=== PATIENT | male | born 1990 | race American Indian/Alaskan Native ===

== ENCOUNTER 2017-12-23 11:49 | Emergency (ER) | payer SELFPAY ==
[2017-12-23] MEDS ORDERED: ZOFRAN ODT ONE (11:59)
[2017-12-23] MEDS ORDERED: ZOFRAN ODT PO ONE (12:01)
[2017-12-23 12:16] LABS: Basophils % (Auto) 0.3 % (0.0-1.8); Eosinophils % (Auto) 0.2 % (0.0-4.3); Hematocrit 47.2 % (35.5-45.6); Hemoglobin 15.8 gm/dl (11.8-15.2); Lymphocytes # (Auto) 1.4 K/mm3 (1.2-5.4); Lymphocytes % (Auto) 9.4 % (13.4-35.0); Mean Corpuscular HGB Conc 34 % (32-34); Mean Corpuscular Hemoglobin 32 pg (28-32); Mean Corpuscular Volume 96 fl (84-94); Monocytes % (Auto) 6.8 % (0.0-7.3); Platelet Count 232 K/mm3 (140-440); Red Blood Count 4.93 M/mm3 (3.65-5.03); Red Cell Distribution Width 14.3 % (13.2-15.2)
[2017-12-23 12:29] LABS: Alanine Aminotransferase 14 units/L (7-56); Albumin 4.1 g/dL (3.9-5); BUN/Creatinine Ratio 13; Blood Urea Nitrogen 12 mg/dL (9-20); Calcium 8.8 mg/dL (8.4-10.2); Hemolysis Index 48; Lipase 24 units/L (13-60)
[2017-12-23 15:34] VITALS: BP 121/62
[2017-12-23 16:05] LABS: Bilirubin,Urine NEG (Negative); Blood,Urine NEG (Negative); Color,Urine Yellow (Yellow); Mucus,Urine 3+ /HPF; Urobilinogen,Urine < 2.0 mg/dL (<2.0)
== END 2017-12-23 16:56 | disposition left against medical advice (07) ==
LOC: ED 11:49
DX: R11.2 Nausea with vomiting, unspecified (principal); Z53.21 Procedure and treatment not carried out due to patient leaving prior to being seen by health care provider
CPT/HCPCS: 36415; 80053; 81001; 83690; 85025; Q0162

== ENCOUNTER 2021-06-12 05:45 | Emergency (ER) | payer SELFPAY ==
[2021-06-12 06:31] VITALS: BP 153/90
[2021-06-12] MEDS ORDERED: SODIUM CHLORIDE 0.9% 1000 ML 1,000 ML IV ONE (07:05)
[2021-06-12] MEDS ORDERED: ONDANSETRON 4 MG/2 ML INJ IV ONE (07:05)
--- NOTE | 2021-06-12 07:07 | Emergency Department Report ---
HPI - General Chief Complaint: Abdominal Pain Time Seen by Provider: 06/12/21 07:05 - HPI HPI: This is a 30-year-old -[place] male presents to the emergency department with a complaint of a 5-day history of mid upper abdominal pain, nausea with vo miting, constipation. Patient has history of Crohn's disease and GERD. He has not taken anything for his symptoms prior to presentation today. No fever, chest pain, shortness of breath, diarrhea. No recent travel or sick contacts at home. Currently he rates his abdominal pain as a 9/10 intensity. No known aggravating or alleviating factors. ED Past Medical Hx - Past Medical History Hx GERD: Yes (gastritis and peptic ulcers) Additional medical history: Recurrent gastritis with vomiting June 2012 - Social History Smoking Status: Unknown if ever smoked Substance Use Type: None - Medications Home Medications: Home Medications Medication Instructions Recorded Confirmed Last Taken Type Famotidine [Pepcid] 10 mg PO BID #20 tablet 10/23/13 10/27/13 10/24/13 12:00 Rx 1 tablet Promethazine [Phenergan] 25 mg PO BID PRN #10 tab 10/23/13 10/27/13 10/24/13 14:00 Rx 1 tablet Ciprofloxacin HCl [Cipro] 500 mg PO Q12H #20 tab 10/24/13 10/27/13 Unknown Rx HYDROcodone/APAP 5-325 [[place] 1 each PO Q6HR PRN #10 tablet 10/24/13 10/27/13 Unknown Rx 5/325 mg] Hyoscyamine Subl [Levsin Sl] 0.125 mg SL Q6HR PRN #14 tablet 10/27/13 Unknown Rx Omeprazole Magnesium [Prilosec Otc] 20 mg PO QDAY #7 tablet. 10/27/13 Unknown Rx Ondansetron [Zofran Odt] 8 mg PO TID PRN #7 tab.rapdis 10/27/13 Unknown Rx Promethazine [Phenergan] 25 mg PO Q6H PRN #10 tablet 10/27/13 Unknown Rx Ondansetron [Zofran Odt] 4 mg PO Q8HR PRN #15 tab.rapdis 06/12/21 Unknown Rx Promethazine [Phenergan SUPPOS] 25 mg FL Q6HR PRN #10 supp.rect 06/12/21 Unknown Rx ED Review of Systems ROS: Stated complaint: ABD PAIN Other details as noted in HPI Comment: All other systems reviewed and negative Constitutional: denies: chills, fever Eyes: denies: eye pain, vision change ENT: denies: ear pain, throat pain Respiratory: denies: cough, shortness of breath Cardiovascular: denies: chest pain, palpitations Gastrointestinal: abdominal pain, nausea, vomiting Genitourinary: denies: dysuria, discharge Musculoskeletal: denies: back pain, arthralgia Skin: denies: rash, lesions Neurological: denies: headache, weakness Physical Exam - Physical Exam Vital Signs: Vital Signs 06/12/21 06:28 Temperature 98.7 F Pulse Rate 85 Respiratory 18 Rate Blood Pressure 153/90 O2 Sat by Pulse 100 Oximetry Physical Exam: GENERAL: The patient is well-developed well-nourished. HENT: Normocephalic. Atraumatic. Patient has moist mucous membranes. EYES: Extraocular motions are intact. NECK: Supple. Trachea is midline. CHEST/LUNGS: Clear to auscultation. There is no respiratory distress noted. HEART/CARDIOVASCULAR: Regular. There is no tachycardia. There is no murmur. ABDOMEN: Abdomen is soft. Reproducible mid upper abdominal tenderness to palpation. No guarding. Patient has normal bowel sounds. There is no abdominal distention. SKIN: Skin is warm and dry. NEURO: The patient is awake, alert, and oriented. The patient is cooperative. The patient has no focal neurologic deficits. Normal speech. MUSCULOSKELETAL: There is no tenderness or deformity. There is no limitation range of motion. ED Course Vital Signs 06/12/21 06:28 Temperature 98.7 F Pulse Rate 85 Respiratory 18 Rate Blood Pressure 153/90 O2 Sat by Pulse 100 Oximetry ED Medical Decision Making - Lab Data Result diagrams: 06/12/21 07:36 06/12/21 07:36 Lab Results 06/12/21 06/12/21 06/12/21 Range/Units 07:36 07:36 07:36 WBC 8.9 (4.5-11.0) K/mm3 RBC 5.03 (3.65-5.03) M/mm3 Hgb 16.9 H (11.8-15.2) gm/dl Hct 48.9 H (35.5-45.6) % MCV 97 H (84-94) fl MCH 34 H (28-32) pg MCHC 35 H (32-34) % RDW 13.6 (13.2-15.2) % Plt Count 277 (140-440) K/mm3 Lymph % (Auto) 19.0 (13.4-35.0) % [place] % (Auto) 12.9 H (0.0-7.3) % Eos % (Auto) 0.8 (0.0-4.3) % Baso % (Auto) 0.6 (0.0-1.8) % Lymph # (Auto) 1.7 (1.2-5.4) K/mm3 Maury # (Auto) 1.1 H (0.0-0.8) K/mm3 Eos # (Auto) 0.1 (0.0-0.4) K/mm3 Baso # (Auto) 0.1 (0.0-0.1) K/mm3 Seg Neutrophils % 66.7 (40.0-70.0) % Seg Neutrophils # 6.0 (1.8-7.7) K/mm3 Sodium 137 (137-145) mmol/L Potassium 3.3 L (3.6-5.0) mmol/L Chloride 97.7 L (98-107) mmol/L Carbon Dioxide 28 (22-30) mmol/L Anion Gap 15 mmol/L BUN 24 H (9-20) mg/dL Creatinine 1.2 (0.8-1.3) mg/dL Estimated GFR > 60 ml/min BUN/Creatinine Ratio 20 % Glucose 120 H (75-100) mg/dL Calcium 10.3 H (8.4-10.2) mg/dL Total Bilirubin 1.00 (0.1-1.2) mg/dL AST 20 (5-40) units/L ALT 17 (7-56) units/L Alkaline Phosphatase 54 (35-129) units/L Total Protein 7.5 (6.3-8.2) g/dL Albumin 4.8 (3.9-5) g/dL Albumin/Globulin Ratio 1.8 % Lipase 24 (13-60) units/L Urine Color (Yellow) Urine Turbidity (Clear) Urine pH (5.0-7.0) Ur Specific [place] (1.003-1.030) Urine Protein (Negative) mg/dL Urine Glucose (UA) (Negative) mg/dL Urine Ketones (Negative) mg/dL Urine Blood (Negative) Urine Nitrite (Negative) Urine Bilirubin (Negative) Urine Urobilinogen (<2.0) mg/dL Ur Leukocyte Esterase (Negative) Urine WBC (Auto) (0.0-6.0) /HPF Urine RBC (Auto) (0.0-6.0) /HPF U Epithel Cells (Auto) (0-13.0) /HPF Urine Mucus /HPF 06/12/21 Range/Units 10:01 WBC (4.5-11.0) K/mm3 RBC (3.65-5.03) M/mm3 Hgb (11.8-15.2) gm/dl Hct (35.5-45.6) % MCV (84-94) fl MCH (28-32) pg MCHC (32-34) % RDW (13.2-15.2) % Plt Count (140-440) K/mm3 Lymph % (Auto) (13.4-35.0) % Maury % (Auto) (0.0-7.3) % Eos % (Auto) (0.0-4.3) % Baso % (Auto) (0.0-1.8) % Lymph # (Auto) (1.2-5.4) K/mm3 [place] # (Auto) (0.0-0.8) K/mm3 Eos # (Auto) (0.0-0.4) K/mm3 Baso # (Auto) (0.0-0.1) K/mm3 Seg Neutrophils % (40.0-70.0) % Seg Neutrophils # (1.8-7.7) K/mm3 Sodium (137-145) mmol/L Potassium (3.6-5.0) mmol/L Chloride (98-107) mmol/L Carbon Dioxide (22-30) mmol/L Anion Gap mmol/L BUN (9-20) mg/dL Creatinine (0.8-1.3) mg/dL Estimated GFR ml/min BUN/Creatinine Ratio % Glucose (75-100) mg/dL Calcium (8.4-10.2) mg/dL Total Bilirubin (0.1-1.2) mg/dL AST (5-40) units/L ALT (7-56) units/L Alkaline Phosphatase (35-129) units/L Total Protein (6.3-8.2) g/dL Albumin (3.9-5) g/dL Albumin/Globulin Ratio % Lipase (13-60) units/L Urine Color Yellow (Yellow) Urine Turbidity Clear (Clear) Urine pH 7.0 (5.0-7.0) Ur Specific [place] 1.031 H (1.003-1.030) Urine Protein 100 mg/dl (Negative) mg/dL Urine Glucose (UA) Neg (Negative) mg/dL Urine Ketones 20 (Negative) mg/dL Urine Blood Sm (Negative) Urine Nitrite Neg (Negative) Urine Bilirubin Neg (Negative) Urine Urobilinogen 2.0 (<2.0) mg/dL Ur Leukocyte Esterase Neg (Negative) Urine WBC (Auto) 2.0 (0.0-6.0) /HPF Urine RBC (Auto) 6.0 (0.0-6.0) /HPF U Epithel Cells (Auto) 1.0 (0-13.0) /HPF Urine Mucus 3+ /HPF - Radiology Data Radiology results: image reviewed interpreted by me: Abdominal x-ray shows nonspecific nonobstructive bowel gas. Increased stool volume. No free air. - Medical Decision Making This patient presents to the emergency department with a complaint of a 5-day history of nausea with vomiting and mid to upper abdominal pain. He has a history of Crohn's disease, recurrent gastritis and GERD. On examination he has some reproducible abdominal tenderness to palpation. However the abdomen is soft, nondistended and nontoxic in appearance. Patient's labs shows hemoconcentration, mild hypokalemia with potassium of 3.3, and mild dehydration. He received a dose of Zofran and a liter of IV fluid resuscitation. Abdominal x-ray shows nonspecific nonobstructive bowel gas and no free air. Vital signs reassuring throughout his ED course including being afebrile. Patient was able to pass an oral challenge. He will be discharged home with antiemetics and has been given outpatient referral for primary care and gastroenterology. He will return to the emergency department with any worsening of his symptoms or with any acute distress. Critical Care Time: No Critical care attestation.: If time is entered above; I have spent that time in minutes in the direct care of this critically ill patient, excluding procedure time. ED Disposition Clinical Impression: Hypokalemia Abdominal pain Qualifiers: Abdominal location: upper abdomen, unspecified Qualified Code(s): R10.10 - Upper abdominal pain, unspecified Nausea & vomiting Qualifiers: Vomiting type: unspecified Vomiting Intractability: non-intractable Qualified Code(s): R11.2 - Nausea with vomiting, unspecified Disposition: 01 HOME / SELF CARE / HOMELESS Is pt being admited?: No Condition: Stable Instructions: Abdominal Pain, Adult, Nausea and Vomiting, Adult, Potassium Content of Foods Additional Instructions: Please follow-up with a primary care physician in the next few days. I have given you a referral for a local primary care physician, Dr. Nolan, and a primary care clinic, [facility]. I am giving you a referral for [facility] to follow-up regarding your recurrent abdominal pain, history of Crohn's disease. Increase your oral rehydration. You have been prescribed a medication that is sedating and therefore should not be taken prior to driving, working, and responsible for children and in no way should be mixed with alcohol of any quantity. Return to the emergency department with any worsening of your symptoms, new or concerning symptoms not addressed during this current emergency department visit, or with any acute distress. Prescriptions: Promethazine [Phenergan SUPPOS] 25 mg FL Q6HR PRN #10 supp.rect PRN Reason: Nausea Ondansetron [Zofran Odt] 4 mg PO Q8HR PRN #15 tab.rapdis PRN Reason: Nausea Referrals: LETITIA NOLAN MD [Staff Physician] - 3-5 Days [facility] [Provider Group] - 3-5 Days [facility] [Provider Group] - 3-5 Days Time of Disposition: 10:39
--- NOTE | 2021-06-12 07:41 | XRay Report ---
ABDOMEN 3 VIEW(S) INDICATION / CLINICAL INFORMATION: Abd pain. COMPARISON: None available. FINDINGS: TUBES / LINES: None. BOWEL GAS PATTERN: No significant abnormality. FREE AIR / EXTRALUMINAL GAS: None seen. ADDITIONAL FINDINGS: No abnormalities are seen on the included chest radiograph. IMPRESSION: 1. No significant abnormality. Signer Name: Jerry Phillip MD Signed: 06/12/2021 7:37 AM Workstation Name: [id number]
[2021-06-12 08:04] LABS: Basophils # (Auto) 0.1 K/mm3 (0.0-0.1); Basophils % (Auto) 0.6 % (0.0-1.8); Eosinophils # (Auto) 0.1 K/mm3 (0.0-0.4); Eosinophils % (Auto) 0.8 % (0.0-4.3); Hematocrit 48.9 % (35.5-45.6); Hemoglobin 16.9 gm/dl (11.8-15.2); Lymphocytes # (Auto) 1.7 K/mm3 (1.2-5.4); Mean Corpuscular HGB Conc 35 % (32-34); Mean Corpuscular Volume 97 fl (84-94); Monocytes # (Auto) 1.1 K/mm3 (0.0-0.8); Monocytes % (Auto) 12.9 % (0.0-7.3); Platelet Count 277 K/mm3 (140-440); Red Blood Count 5.03 M/mm3 (3.65-5.03); Red Cell Distribution Width 13.6 % (13.2-15.2)
[2021-06-12 08:26] LABS: Alanine Aminotransferase 17 units/L (7-56); Albumin 4.8 g/dL (3.9-5); BUN/Creatinine Ratio 20; Blood Urea Nitrogen 24 mg/dL (9-20); Calcium 10.3 mg/dL (8.4-10.2); Hemolysis Index 27
[2021-06-12] MEDS ORDERED: POTASSIUM CHLORIDE ER 20 MEQ TAB PO ONE (08:57)
[2021-06-12 10:55] LABS: Bilirubin,Urine NEG (Negative); Blood,Urine SM (Negative); Color,Urine Yellow (Yellow); Mucus,Urine 3+ /HPF
== END 2021-06-12 11:13 | disposition home or self-care (01) ==
LOC: ED 05:45
DX: E87.6 Hypokalemia (principal); R11.2 Nausea with vomiting, unspecified; R10.11 Right upper quadrant pain; K21.9 Gastro-esophageal reflux disease without esophagitis; Z79.899 Other long term (current) drug therapy
CPT/HCPCS: 36415; 74022; 80053; 81001; 83690; 85025; 96361; 96374; 99284; J2405; J7030

== ENCOUNTER 2021-12-21 11:22 | Emergency (ER) | payer SELFPAY ==
[2021-12-21] MEDS ORDERED: SODIUM CHLORIDE 0.9% 1000 ML 1,000 ML IV ONE (11:44)
[2021-12-21] MEDS ORDERED: METOCLOPRAMIDE 10 MG/2 ML INJ IV ONE (11:44)
[2021-12-21 12:53] LABS: Basophils % (Auto) 0.6 % (0.0-1.8); Eosinophils # (Auto) 0.1 K/mm3 (0.0-0.4); Eosinophils % (Auto) 0.8 % (0.0-4.3); Hematocrit 43.3 % (35.5-45.6); Hemoglobin 15.2 gm/dl (11.8-15.2); Lymphocytes # (Auto) 1.1 K/mm3 (1.2-5.4); Lymphocytes % (Auto) 16.2 % (13.4-35.0); Mean Corpuscular HGB Conc 35 % (32-34); Mean Corpuscular Volume 97 fl (84-94); Monocytes # (Auto) 0.9 K/mm3 (0.0-0.8); Monocytes % (Auto) 12.7 % (0.0-7.3); Platelet Count 253 K/mm3 (140-440); Red Blood Count 4.45 M/mm3 (3.65-5.03); Red Cell Distribution Width 13.8 % (13.2-15.2)
[2021-12-21 13:24] LABS: Alanine Aminotransferase 25 units/L (7-56); BUN/Creatinine Ratio 28; Blood Urea Nitrogen 25 mg/dL (9-20); Calcium 9.6 mg/dL (8.4-10.2); Hemolysis Index 15
[2021-12-21] MEDS ORDERED: KETOROLAC 30 MG/1 ML INJ IV ONE (13:29)
--- NOTE | 2021-12-21 13:31 | Emergency Department Report ---
ED N/V/D HPI - General Chief complaint: Nausea/Vomiting/Diarrhea Stated complaint: NAUSEA Time Seen by Provider: 12/21/21 11:42 Source: patient, EMS Mode of arrival: Stretcher Limitations: No Limitations - History of Present Illness Initial comments: PT ARRIVING FROM HOME, C/O NAUSEA/VOMITTING. X2 DAYS. HX RENAL FAILURE, ANXIETY, GERD pt said he was dmitted few times to [facility] and [place] for renal failure 3ry to [facility] complaint: nausea, vomiting -: Gradual Associated Abdominal Pain: No Location: diffuse Quality: cramping Consistency: intermittent - Related Data Previous Rx's Medication Instructions Recorded Last Taken Type Famotidine [Pepcid] 10 mg PO BID #20 tablet 10/23/13 10/24/13 12:00 Rx 1 tablet Promethazine [Phenergan] 25 mg PO BID PRN #10 tab 10/23/13 10/24/13 14:00 Rx 1 tablet Ciprofloxacin HCl [Cipro] 500 mg PO Q12H #20 tab 10/24/13 Unknown Rx HYDROcodone/APAP 5-325 [[place] 1 each PO Q6HR PRN #10 tablet 10/24/13 Unknown Rx 5/325 mg] Hyoscyamine Subl [Levsin Sl] 0.125 mg SL Q6HR PRN #14 tablet 10/27/13 Unknown Rx Omeprazole Magnesium [Prilosec Otc] 20 mg PO QDAY #7 tablet.dr 10/27/13 Unknown Rx Ondansetron [Zofran Odt] 8 mg PO TID PRN #7 tab.rapdis 10/27/13 Unknown Rx Promethazine [Phenergan] 25 mg PO Q6H PRN #10 tablet 10/27/13 Unknown Rx Ondansetron [Zofran Odt] 4 mg PO Q8HR PRN #15 tab.rapdis 06/12/21 Unknown Rx Promethazine [Phenergan SUPPOS] 25 mg [place] Q6HR PRN #10 supp.rect 06/12/21 Unknown Rx Allergies Allergy/AdvReac Type Severity Reaction Status Date / Time No Known Allergies Allergy Verified 12/21/21 11:25 ED Review of Systems ROS: Stated complaint: NAUSEA Other details as noted in HPI Constitutional: denies: chills, fever Eyes: denies: eye pain, eye discharge, vision change ENT: denies: ear pain, throat pain Respiratory: denies: cough, shortness of breath, wheezing Cardiovascular: denies: chest pain, palpitations Endocrine: no symptoms reported Gastrointestinal: denies: abdominal pain, nausea, diarrhea Genitourinary: denies: urgency, dysuria Musculoskeletal: denies: back pain, joint swelling, arthralgia Skin: denies: rash, lesions Neurological: denies: headache, weakness, paresthesias Psychiatric: denies: anxiety, depression Hematological/Lymphatic: denies: easy bleeding, easy bruising ED Past Medical Hx - Past Medical History Previous Medical History?: Yes Hx GERD: Yes (gastritis and peptic ulcers) Additional medical history: Recurrent gastritis with vomiting June 2012 - Social History Smoking Status: Never Smoker - Medications Home Medications: Home Medications Medication Instructions Recorded Confirmed Last Taken Type Famotidine [Pepcid] 10 mg PO BID #20 tablet 10/23/13 10/27/13 10/24/13 12:00 Rx 1 tablet Promethazine [Phenergan] 25 mg PO BID PRN #10 tab 10/23/13 10/27/13 10/24/13 14:00 Rx 1 tablet Ciprofloxacin HCl [Cipro] 500 mg PO Q12H #20 tab 10/24/13 10/27/13 Unknown Rx HYDROcodone/APAP 5-325 [[place] 1 each PO Q6HR PRN #10 tablet 10/24/13 10/27/13 Unknown Rx 5/325 mg] Hyoscyamine Subl [Levsin Sl] 0.125 mg SL Q6HR PRN #14 tablet 10/27/13 Unknown Rx Omeprazole Magnesium [Prilosec Otc] 20 mg PO QDAY #7 tablet. 10/27/13 Unknown Rx Ondansetron [Zofran Odt] 8 mg PO TID PRN #7 tab.rapdis 10/27/13 Unknown Rx Promethazine [Phenergan] 25 mg PO Q6H PRN #10 tablet 10/27/13 Unknown Rx Ondansetron [Zofran Odt] 4 mg PO Q8HR PRN #15 tab.rapdis 06/12/21 Unknown Rx Promethazine [Phenergan SUPPOS] 25 mg [place] Q6HR PRN #10 supp.rect 06/12/21 Unknown Rx ED Physical Exam - General Limitations: No Limitations General appearance: alert, in no apparent distress - Head Head exam: Present: atraumatic, normocephalic - Eye Eye exam: Present: normal appearance - ENT ENT exam: Present: mucous membranes moist - Neck Neck exam: Present: normal inspection - Respiratory Respiratory exam: Present: normal lung sounds bilaterally. Absent: respiratory distress - Cardiovascular Cardiovascular Exam: Present: regular rate, normal rhythm. Absent: systolic murmur, diastolic murmur, rubs, gallop - GI/Abdominal GI/Abdominal exam: Present: soft, normal bowel sounds - Rectal Rectal exam: Present: deferred - Extremities Exam Extremities exam: Present: normal inspection - Back Exam Back exam: Present: normal inspection - Neurological Exam Neurological exam: Present: alert, oriented X3 - Psychiatric Psychiatric exam: Present: normal affect, normal mood - Skin Skin exam: Present: warm, dry, intact, normal color. Absent: rash ED Course Vital Signs 12/21/21 12/21/21 12/21/21 11:23 11:42 11:45 Temperature 98.3 F Pulse Rate 59 L Respiratory 20 Rate Blood Pressure Blood Pressure 150/80 [Left] O2 Sat by Pulse 99 100 100 Oximetry 12/21/21 12/21/21 12/21/21 12:01 12:15 12:31 Temperature Pulse Rate 63 Respiratory 16 Rate Blood Pressure 134/79 142/79 124/71 Blood Pressure [Left] O2 Sat by Pulse 100 98 100 Oximetry 12/21/21 12/21/21 12/21/21 12:42 12:45 13:01 Temperature 97.0 F L Pulse Rate 65 71 66 Respiratory 14 14 19 Rate Blood Pressure 124/71 122/91 114/64 Blood Pressure [Left] O2 Sat by Pulse 100 100 100 Oximetry 12/21/21 13:15 Temperature Pulse Rate 65 Respiratory 13 Rate Blood Pressure 118/64 Blood Pressure [Left] O2 Sat by Pulse 100 Oximetry ED Medical Decision Making - Lab Data Result diagrams: 12/21/21 12:06 12/21/21 12:06 - Medical Decision Making fluids given nausea controlled , vss no distress , kidney function within normal limits Critical care attestation.: If time is entered above; I have spent that time in minutes in the direct care of this critically ill patient, excluding procedure time. ED Disposition Clinical Impression: Nausea and vomiting Disposition: 01 HOME / SELF CARE / HOMELESS Is pt being admited?: No Does the pt Need Aspirin: No Condition: Stable Instructions: Nausea and Vomiting, Adult Referrals: PRIMARY CARE, [Primary Care Provider] - 3-5 Days
[2021-12-21 13:57] VITALS: BP 123/61
== END 2021-12-21 14:20 | disposition home or self-care (01) ==
LOC: ED 11:22
DX: R11.2 Nausea with vomiting, unspecified (principal); K21.9 Gastro-esophageal reflux disease without esophagitis
CPT/HCPCS: 36415; 80053; 82150; 82550; 83690; 84484; 85025; 96361; 96374; 96375; 99284; J1885; J2765; J7030; Q0162

== ENCOUNTER 2021-12-27 06:26 | Emergency (ER) | payer SELFPAY ==
[2021-12-27 06:32] VITALS: BP 145/89
[2021-12-27] MEDS ORDERED: SODIUM CHLORIDE 0.9% 1000 ML 1,000 ML IV ONE (10:26)
[2021-12-27] MEDS ORDERED: MORPHINE 4 MG/1 ML INJ IV ONE (10:26)
[2021-12-27] MEDS ORDERED: ONDANSETRON 4 MG/2 ML INJ IV ONE (10:26)
--- NOTE | 2021-12-27 11:25 | XRay Report ---
XR abdomen 1V ap INDICATION / CLINICAL INFORMATION: n/v, one week history of no bm. COMPARISON: 06/12/2021 FINDINGS: TUBES / LINES: None. BOWEL GAS PATTERN: Moderate quantity of stool. Nonobstructive bowel gas pattern. FREE AIR / EXTRALUMINAL GAS: None seen. ADDITIONAL FINDINGS: No significant additional findings. IMPRESSION: 1. Moderate quantity of stool with nonobstructive bowel gas pattern. Signer Name: Jasper Hamilton MD Signed: 12/27/2021 11:21 AM Workstation Name: [id number]
[2021-12-27 12:10] LABS: Hematocrit 48.1 % (35.5-45.6); Hemoglobin 16.7 gm/dl (11.8-15.2); Mean Corpuscular HGB Conc 35 % (32-34); Mean Corpuscular Volume 96 fl (84-94); Platelet Count 283 K/mm3 (140-440); Red Blood Count 5.02 M/mm3 (3.65-5.03); Red Cell Distribution Width 13.1 % (13.2-15.2)
--- NOTE | 2021-12-27 12:19 | Ultrasound Report ---
ULTRASOUND ABDOMEN, COMPLETE INDICATION / CLINICAL INFORMATION: abdominal pain RUQ. COMPARISON: CT dated 10/23/2013 FINDINGS: PANCREAS: Visualized portions of the pancreas are within normal limits. ABDOMINAL AORTA: No significant abnormality. IVC: No significant abnormality. LIVER: The liver demonstrates a normal echogenicity and morphology. PORTAL VEIN: Normal hepatopedal blood flow in the main portal vein. GALLBLADDER: Mild sludge in the gallbladder. No evidence of gallbladder wall thickening or other find ings to suggest cholecystitis. BILE DUCTS: Common bile duct measures 2 mm. No significant abnormality. KIDNEYS: Right: No significant abnormality. Left: No significant abnormality. SPLEEN: No significant abnormality. FREE FLUID: None. ADDITIONAL FINDINGS: None. IMPRESSION: 1. Mild gallbladder sludge. No evidence of cholecystitis. 2. Otherwise, no significant abnormality of the abdomen. Signer Name: Rowdy Gregg MD Signed: 12/27/2021 12:14 PM Workstation Name: [id number]
[2021-12-27 12:33] LABS: Alanine Aminotransferase 17 units/L (7-56); Albumin 5.1 g/dL (3.9-5); BUN/Creatinine Ratio 20; Blood Urea Nitrogen 20 mg/dL (9-20); Calcium 9.8 mg/dL (8.4-10.2); Hemolysis Index 11
--- NOTE | 2021-12-27 12:50 | Emergency Department Report ---
ED Abdominal Pain HPI - General Chief Complaint: Abdominal Pain Stated Complaint: ABD PAIN/EMESIS Time Seen by Provider: 12/27/21 10:18 Source: patient, EMS Mode of arrival: Ambulatory Limitations: No Limitations - History of Present Illness Initial Comments: 31-year-old black male with a past medical history of GERD presents to the emergency department for evaluation of 1 week history of right upper quadrant abdominal pain and nausea. He also states that he has not had a bowel movement in 1 week. He denies fever, dysuria, and penile discharge. States that he has not been able to keep anything down for 1 week and anytime he drinks or eats something he just vomits it back up. He states pain is 8 on a 10 point scale and is mostly persistent. MD Complaint: abdominal pain (Right upper quadrant) -: Gradual, week(s) (1) Location: RUQ Radiation: none Migration to: no migration Severity: severe Severity scale (0 -10): 10 Quality: aching Consistency: constant Associated Symptoms: nausea, vomiting, constipation. denies: diarrhea, fever, chills, dysuria, hematemesis, hematochezia, melena, hematuria, anorexia, syncope - Related Data Previous Rx's Medication Instructions Recorded Last Taken Type Famotidine [Pepcid] 10 mg PO BID #20 tablet 10/23/13 10/24/13 12:00 Rx 1 tablet Promethazine [Phenergan] 25 mg PO BID PRN #10 tab 10/23/13 10/24/13 14:00 Rx 1 tablet Ciprofloxacin HCl [Cipro] 500 mg PO Q12H #20 tab 10/24/13 Unknown Rx HYDROcodone/APAP 5-325 [[place] 1 each PO Q6HR PRN #10 tablet 10/24/13 Unknown Rx 5/325 mg] Hyoscyamine Subl [Levsin Sl] 0.125 mg SL Q6HR PRN #14 tablet 10/27/13 Unknown Rx Omeprazole Magnesium [Prilosec Otc] 20 mg PO QDAY #7 tablet. 10/27/13 Unknown Rx Ondansetron [Zofran Odt] 8 mg PO TID PRN #7 tab.sandidis 10/27/13 Unknown Rx Promethazine [Phenergan] 25 mg PO Q6H PRN #10 tablet 10/27/13 Unknown Rx Ondansetron [Zofran Odt] 4 mg PO Q8HR PRN #15 tab.rapdis 06/12/21 Unknown Rx Promethazine [Phenergan SUPPOS] 25 mg [place] Q6HR PRN #10 supp.rect 06/12/21 Unknown Rx Famotidine [Pepcid] 20 mg PO BID #30 tablet 12/21/21 Unknown Rx Omeprazole 20 mg PO DAILY #30 12/21/21 Unknown Rx Ondansetron [Zofran Odt] 4 mg PO Q8HR #14 tab.rapdis 12/21/21 Unknown Rx Magnesium Citrate [Citrate of 296 ml PO ONCE #1 bottle 12/27/21 Unknown Rx Magnesia] Naproxen [Naprosyn] 500 mg PO 14 PRN #14 tab 12/27/21 Unknown Rx Ondansetron [Zofran Odt] 4 mg PO Q8HR #12 tab.rapdis 12/27/21 Unknown Rx Polyethylene Glycol 3350 [Miralax] 17 gm PO DAILY #119 gm 12/27/21 Unknown Rx Allergies Allergy/AdvReac Type Severity Reaction Status Date / Time No Known Allergies Allergy Verified 12/21/21 11:25 ED Review of Systems ROS: Stated complaint: ABD PAIN/EMESIS Other details as noted in HPI Comment: All other systems reviewed and negative Constitutional: denies: chills, fever Respiratory: denies: shortness of breath Cardiovascular: denies: chest pain, palpitations, dyspnea on exertion, orthopnea, edema, syncope, paroxysmal nocturnal dyspnea Gastrointestinal: abdominal pain, nausea, vomiting. denies: diarrhea, constipation, hematemesis, melena, hematochezia Genitourinary: denies: urgency, dysuria Musculoskeletal: denies: back pain Neurological: denies: headache, weakness ED Past Medical Hx - Past Medical History Hx GERD: Yes (gastritis and peptic ulcers) Additional medical history: Recurrent gastritis with vomiting June 2012 - Social History Smoking Status: Never Smoker - Medications Home Medications: Home Medications Medication Instructions Recorded Confirmed Last Taken Type Famotidine [Pepcid] 10 mg PO BID #20 tablet 10/23/13 10/27/13 10/24/13 12:00 Rx 1 tablet Promethazine [Phenergan] 25 mg PO BID PRN #10 tab 10/23/13 10/27/13 10/24/13 14:00 Rx 1 tablet Ciprofloxacin HCl [Cipro] 500 mg PO Q12H #20 tab 10/24/13 10/27/13 Unknown Rx HYDROcodone/APAP 5-325 [[place] 1 each PO Q6HR PRN #10 tablet 10/24/13 10/27/13 Unknown Rx 5/325 mg] Hyoscyamine Subl [Levsin Sl] 0.125 mg SL Q6HR PRN #14 tablet 10/27/13 Unknown Rx Omeprazole Magnesium [Prilosec Otc] 20 mg PO QDAY #7 tablet.dr 10/27/13 Unknown Rx Ondansetron [Zofran Odt] 8 mg PO TID PRN #7 tab.rapdis 10/27/13 Unknown Rx Promethazine [Phenergan] 25 mg PO Q6H PRN #10 tablet 10/27/13 Unknown Rx Ondansetron [Zofran Odt] 4 mg PO Q8HR PRN #15 tab.rapdis 06/12/21 Unknown Rx Promethazine [Phenergan SUPPOS] 25 mg [place] Q6HR PRN #10 supp.rect 06/12/21 Unknown Rx Famotidine [Pepcid] 20 mg PO BID #30 tablet 12/21/21 Unknown Rx Omeprazole 20 mg PO DAILY #30 12/21/21 Unknown Rx Ondansetron [Zofran Odt] 4 mg PO Q8HR #14 tab.rapdis 12/21/21 Unknown Rx Magnesium Citrate [Citrate of 296 ml PO ONCE #1 bottle 12/27/21 Unknown Rx Magnesia] Naproxen [Naprosyn] 500 mg PO 14 PRN #14 tab 12/27/21 Unknown Rx Ondansetron [Zofran Odt] 4 mg PO Q8HR #12 tab.rapdis 12/27/21 Unknown Rx Polyethylene Glycol 3350 [Miralax] 17 gm PO DAILY #119 gm 12/27/21 Unknown Rx ED Physical Exam - General Limitations: No Limitations General appearance: alert, in no apparent distress - Head Head exam: Present: atraumatic, normocephalic - Eye Eye exam: Present: normal appearance. Absent: conjunctival injection - Neck Neck exam: Present: normal inspection, full ROM. Absent: tenderness, lymphadenopathy - Respiratory Respiratory exam: Present: normal lung sounds bilaterally. Absent: respiratory distress, wheezes, rales, rhonchi, stridor, chest wall tenderness, accessory muscle use - Cardiovascular Cardiovascular Exam: Present: regular rate, normal heart sounds - GI/Abdominal GI/Abdominal exam: Present: soft, tenderness (Right upper quadrant), normal bowel sounds. Absent: distended, guarding, rebound, rigid - Extremities Exam Extremities exam: Present: normal inspection - Back Exam Back exam: Present: normal inspection. Absent: tenderness, CVA tenderness (R), CVA tenderness (L), paraspinal tenderness - Neurological Exam Neurological exam: Present: alert, oriented X3 - Psychiatric Psychiatric exam: Present: normal affect, normal mood - Skin Skin exam: Present: warm, dry, intact, normal color ED Course Vital Signs 12/27/21 06:31 Temperature 98 F Pulse Rate 89 Respiratory 18 Rate Blood Pressure 145/89 [Right] O2 Sat by Pulse 98 Oximetry - Reevaluation(s) Reevaluation #1: 12/27/21 12:50 Nausea vomiting abdominal pain mostly resolved ED Medical Decision Making - Lab Data Result diagrams: 12/27/21 11:36 12/27/21 11:36 - Radiology Data Radiology results: report reviewed, image reviewed KUB: IMPRESSION: 1. Moderate quantity of stool with nonobstructive bowel gas pattern. Abdominal ultrasound: IMPRESSION: 1. Mild gallbladder sludge. No evidence of cholecystitis. 2. Otherwise, no significant abnormality of the abdomen. - Medical Decision Making 31-year-old black male with a past medical history of GERD presents to the emergency department for evaluation of 1 week history of right upper quadrant abdominal pain and nausea. He also states that he has not had a bowel movement in 1 week. He denies fever, dysuria, and penile discharge. States that he has not been able to keep anything down for 1 week and anytime he drinks or eats something he just vomits it back up. He states pain is 8 on a 10 point scale and is mostly persistent. No gross abnormalities noted on labs. Patient noted to have tenderness in right upper quadrant, and ultrasound positive for gallbladder sludge. KUB positive for moderate amounts of stool in colon. Patient will be treated with 1 bottle of mag citrate and as needed the use of daily MiraLAX. He will be given Zofran to take as needed for nausea vomiting at home along with naproxen to use as needed for pain. He will be advised to follow-up with general surgery regarding constipation. Plan of care reviewed with patient he verbalized understanding of and agreement with. Critical care attestation.: If time is entered above; I have spent that time in minutes in the direct care of this critically ill patient, excluding procedure time. ED Disposition Clinical Impression: Sludge in gallbladder Constipation Qualifiers: Constipation type: unspecified constipation type Qualified Code(s): K59.00 - Constipation, unspecified Disposition: HOME / SELF CARE / HOMELESS Is pt being admited?: No Does the pt Need Aspirin: No Condition: Stable Instructions: Constipation, Adult, [id number], Gallbladder Eating Plan Additional Instructions: Take medications as prescribed. Follow-up with general surgery and/or GI for further evaluation and management. Return to the emergency department for any concerning symptoms. Prescriptions: Magnesium Citrate [Citrate of Magnesia] 296 ml PO ONCE #1 bottle Polyethylene Glycol 3350 [Miralax] 17 gm PO DAILY #119 gm Naproxen [Naprosyn] 500 mg PO 14 PRN #14 tab PRN Reason: Pain , Severe (7-10) Ondansetron [Zofran Odt] 4 mg PO Q8HR #12 tab.rapdis Referrals: PRIMARY CARE, [Primary Care Provider] - 3-5 Days Forms: Work/School Release Form(ED) Time of Disposition: 13:00
== END 2021-12-27 15:06 | disposition home or self-care (01) ==
LOC: ED 06:26
DX: K82.8 Other specified diseases of gallbladder (principal); K59.00 Constipation, unspecified
CPT/HCPCS: 36415; 74018; 76700; 80053; 83690; 85027; 96361; 96374; 96375; 99285; J2270; J2405; J7030; Q0162

== ENCOUNTER 2022-05-14 13:11 | Emergency (ER) | payer SELFPAY ==
[2022-05-14] MEDS ORDERED: SODIUM CHLORIDE 0.9% 1000 ML 1,000 ML IV ONE ×2 (14:09→15:28)
[2022-05-14] MEDS ORDERED: DICYCLOMINE 20 MG/2 ML INJ IM ONE (14:10)
[2022-05-14] MEDS ORDERED: ONDANSETRON 4 MG/2 ML INJ IV ONE (14:10)
[2022-05-14] MEDS ORDERED: MORPHINE 4 MG/1 ML INJ IV ONE (14:11)
--- NOTE | 2022-05-14 14:52 | XRay Report ---
CHEST 1 VIEW INDICATION: chest pain. COMPARISON: 06/12/2021 FINDINGS: SUPPORT DEVICES: None. HEART: Within normal limits. LUNGS/PLEURA: No acute air space or interstitial disease. ADDITIONAL FINDINGS: None. IMPRESSION: 1. No acute findings. Signer Name: Alfredo Reyes MD Signed: 05/14/2022 2:47 PM Workstation Name: [id number]
[2022-05-14 14:54] LABS: Hematocrit 51.6 % (35.5-45.6); Hemoglobin 17.7 gm/dl (11.8-15.2); Mean Corpuscular HGB Conc 34 % (32-34); Mean Corpuscular Volume 96 fl (84-94); Platelet Count 164 K/mm3 (140-440); Red Cell Distribution Width 13.6 % (13.2-15.2)
[2022-05-14 15:18] LABS: Alanine Aminotransferase 19 units/L (7-56); Albumin 5.1 g/dL (3.9-5); BUN/Creatinine Ratio 18; Blood Urea Nitrogen 22 mg/dL (9-20); Calcium 9.6 mg/dL (8.4-10.2); Hemolysis Index 47
[2022-05-14] MEDS ORDERED: diphenhydrAMINE 50 MG/ML VIAL IV ONE (15:28)
[2022-05-14] MEDS ORDERED: METOCLOPRAMIDE 10 MG/2 ML INJ IV ONE (15:28)
[2022-05-14] MEDS ORDERED: PROCHLORPERAZINE EDISYLATE 10 MG/2 ML VIAL IV ONE (17:09)
[2022-05-14] MEDS ORDERED: KETOROLAC 30 MG/1 ML INJ IV ONE (17:09)
[2022-05-14 18:07] LABS: Bacteria,Urine 1+ /HPF (Negative); Mucus,Urine 3+ /HPF
[2022-05-14 18:09] LABS: Bilirubin,Urine Negative (Negative); Color,Urine Dark Yellow (Yellow)
[2022-05-14 18:10] LABS: Blood,Urine Trace (Negative); PH,Urine 5.5 (5.0-7.0); Urobilinogen,Urine < 2.0 mg/dL (<2.0)
--- NOTE | 2022-05-14 18:51 | Cat Scan Report ---
CT ABDOMEN AND PELVIS WITHOUT CONTRAST HISTORY: abdominal pain, n/v. COMPARISON: CT abdomen/pelvis from 10/23/2013 TECHNIQUE: CT images of the abdomen and pelvis were obtained without administration of intravenous co ntrast. All CT scans at this location are performed using CT dose reduction for ALARA by means of au tomated exposure control. FINDINGS: Lungs/bones: Lung bases are clear. No acute osseous abnormality. Abdomen/pelvis: The liver, gallbladder, spleen, pancreas, adrenals, kidneys, and proximal GI tract a ppear unremarkable. Urinary bladder and prostate are normal with no pelvic free fluid. No acute colonic abnormality ident ified. Appendix is not well seen but there is no pericecal inflammatory change. IMPRESSION: 1. No acute abnormality. Signer Name: Alfredo Reyes MD Signed: 05/14/2022 6:46 PM Workstation Name: [id number]
[2022-05-14] MEDS ORDERED: POTASSIUM CHLORIDE ER 20 MEQ TAB PO ONE (19:12)
--- NOTE | 2022-05-14 19:21 | Emergency Department Report ---
ED Abdominal Pain HPI - General Chief Complaint: Nausea/Vomiting/Diarrhea Stated Complaint: NAUSEA/VOMITING Time Seen by Provider: 05/14/22 13:21 Source: patient, EMS Mode of arrival: Stretcher Limitations: No Limitations - History of Present Illness Initial Comments: 31-year-old black male with no past medical history presents to the emergency department for evaluation of nausea, vomiting, and abdominal pain. He states that for the past 3 days that he has been having sore throat and intermittent diaphoresis. He states that he ate some fish last night and earlier this a.m. he started to have persistent nausea and vomiting and abdominal cramping. He states that he has not been able to keep anything down. He denies fever, dysuria, penile discharge but states that he has had some intermittent diarrhea as well. MD Complaint: abdominal pain -: days(s) (1) Location: diffuse Radiation: none Migration to: no migration Severity scale (0 -10): 8 Quality: cramping, aching Consistency: constant Context: possible food poisoning Associated Symptoms: nausea, vomiting, diarrhea. denies: fever, chills, dysuria, hematemesis, hematochezia, melena, hematuria, anorexia, syncope - Related Data Previous Rx's Medication Instructions Recorded Last Taken Type Famotidine [Pepcid] 10 mg PO BID #20 tablet 10/23/13 10/24/13 12:00 Rx 1 tablet Promethazine [Phenergan] 25 mg PO BID PRN #10 tab 10/23/13 10/24/13 14:00 Rx 1 tablet Ciprofloxacin HCl [Cipro] 500 mg PO Q12H #20 tab 10/24/13 Unknown Rx HYDROcodone/APAP 5-325 [[place] 1 each PO Q6HR PRN #10 tablet 10/24/13 Unknown Rx 5/325 mg] Hyoscyamine Subl [Levsin Sl] 0.125 mg SL Q6HR PRN #14 tablet 10/27/13 Unknown Rx Omeprazole Magnesium [Prilosec Otc] 20 mg PO QDAY #7 tablet. 10/27/13 Unknown Rx Ondansetron [Zofran Odt] 8 mg PO TID PRN #7 tab.sandidis 10/27/13 Unknown Rx Promethazine [Phenergan] 25 mg PO Q6H PRN #10 tablet 10/27/13 Unknown Rx Ondansetron [Zofran Odt] 4 mg PO Q8HR PRN #15 tab.rapdis 06/12/21 Unknown Rx Promethazine [Phenergan SUPPOS] 25 mg [place] Q6HR PRN #10 supp.rect 06/12/21 Unknown Rx Famotidine [Pepcid] 20 mg PO BID #30 tablet 12/21/21 Unknown Rx Omeprazole 20 mg PO DAILY #30 12/21/21 Unknown Rx Ondansetron [Zofran Odt] 4 mg PO Q8HR #14 tab.rapdis 12/21/21 Unknown Rx Magnesium Citrate [Citrate of 296 ml PO ONCE #1 bottle 12/27/21 Unknown Rx Magnesia] Naproxen [Naprosyn] 500 mg PO 14 PRN #14 tab 12/27/21 Unknown Rx Ondansetron [Zofran Odt] 4 mg PO Q8HR #12 tab.rapdis 12/27/21 Unknown Rx Polyethylene Glycol 3350 [Miralax] 17 gm PO DAILY #119 gm 12/27/21 Unknown Rx Dicyclomine [Bentyl] 20 mg PO QID PRN #30 tablet 05/14/22 Unknown Rx Promethazine [Phenergan] 25 mg PO Q8HR PRN #30 tab 05/14/22 Unknown Rx Allergies Allergy/AdvReac Type Severity Reaction Status Date / Time No Known Allergies Allergy Verified 05/14/22 13:16 ED Review of Systems ROS: Stated complaint: NAUSEA/VOMITING Other details as noted in HPI Comment: All other systems reviewed and negative Constitutional: weakness. denies: chills, fever Respiratory: denies: shortness of breath Cardiovascular: denies: chest pain, palpitations Gastrointestinal: abdominal pain, nausea, vomiting, diarrhea. denies: hematemesis, melena, hematochezia Genitourinary: denies: urgency, dysuria, frequency, discharge, testicular pain Musculoskeletal: denies: back pain Neurological: weakness. denies: headache ED Past Medical Hx - Past Medical History Hx GERD: Yes (gastritis and peptic ulcers) Additional medical history: Recurrent gastritis with vomiting June 2012 - Surgical History Past Surgical History?: No - Social History Smoking Status: Current Every Day Smoker Substance Use Type: None - Medications Home Medications: Home Medications Medication Instructions Recorded Confirmed Last Taken Type Famotidine [Pepcid] 10 mg PO BID #20 tablet 10/23/13 10/27/13 10/24/13 12:00 Rx 1 tablet Promethazine [Phenergan] 25 mg PO BID PRN #10 tab 10/23/13 10/27/13 10/24/13 14:00 Rx 1 tablet Ciprofloxacin HCl [Cipro] 500 mg PO Q12H #20 tab 10/24/13 10/27/13 Unknown Rx HYDROcodone/APAP 5-325 [[place] 1 each PO Q6HR PRN #10 tablet 10/24/13 10/27/13 Unknown Rx 5/325 mg] Hyoscyamine Subl [Levsin Sl] 0.125 mg SL Q6HR PRN #14 tablet 10/27/13 Unknown Rx Omeprazole Magnesium [Prilosec Otc] 20 mg PO QDAY #7 tablet.dr 10/27/13 Unknown Rx Ondansetron [Zofran Odt] 8 mg PO TID PRN #7 tab.rapdis 10/27/13 Unknown Rx Promethazine [Phenergan] 25 mg PO Q6H PRN #10 tablet 10/27/13 Unknown Rx Ondansetron [Zofran Odt] 4 mg PO Q8HR PRN #15 tab.rapdis 06/12/21 Unknown Rx Promethazine [Phenergan SUPPOS] 25 mg CO Q6HR PRN #10 supp.rect 06/12/21 Unknown Rx Famotidine [Pepcid] 20 mg PO BID #30 tablet 12/21/21 Unknown Rx Omeprazole 20 mg PO DAILY #30 12/21/21 Unknown Rx Ondansetron [Zofran Odt] 4 mg PO Q8HR #14 tab.rapdis 12/21/21 Unknown Rx Magnesium Citrate [Citrate of 296 ml PO ONCE #1 bottle 12/27/21 Unknown Rx Magnesia] Naproxen [Naprosyn] 500 mg PO 14 PRN #14 tab 12/27/21 Unknown Rx Ondansetron [Zofran Odt] 4 mg PO Q8HR #12 tab.rapdis 12/27/21 Unknown Rx Polyethylene Glycol 3350 [Miralax] 17 gm PO DAILY #119 gm 12/27/21 Unknown Rx Dicyclomine [Bentyl] 20 mg PO QID PRN #30 tablet 05/14/22 Unknown Rx Promethazine [Phenergan] 25 mg PO Q8HR PRN #30 tab 05/14/22 Unknown Rx ED Physical Exam - General Limitations: No Limitations General appearance: alert, in no apparent distress - Head Head exam: Present: atraumatic, normocephalic - Eye Eye exam: Present: normal appearance. Absent: conjunctival injection, periorbital swelling, periorbital tenderness - ENT ENT exam: Present: normal exam, normal orophraynx - Neck Neck exam: Present: normal inspection, full ROM. Absent: tenderness, lymphadenopathy - Respiratory Respiratory exam: Present: normal lung sounds bilaterally. Absent: respiratory distress, wheezes, rales, rhonchi, stridor, chest wall tenderness - Cardiovascular Cardiovascular Exam: Present: bradycardia, normal heart sounds - GI/Abdominal GI/Abdominal exam: Present: soft, tenderness (Generalized), normal bowel sounds. Absent: distended, guarding, rebound, rigid - Extremities Exam Extremities exam: Present: normal inspection, full ROM, normal capillary refill. Absent: tenderness, pedal edema, joint swelling, calf tenderness - Back Exam Back exam: Present: normal inspection. Absent: CVA tenderness (R), CVA tenderness (L), vertebral tenderness - Neurological Exam Neurological exam: Present: alert, oriented X3, normal gait - Psychiatric Psychiatric exam: Present: normal affect, normal mood - Skin Skin exam: Present: warm, dry, intact, normal color ED Course Vital Signs 05/14/22 05/14/22 05/14/22 13:14 13:28 20:10 Temperature 97.3 F L 97.4 F L Pulse Rate 50 L 60 67 Respiratory 18 18 12 Rate Blood Pressure 111/52 Blood Pressure 141/83 111/52 116/57 [Left] O2 Sat by Pulse 99 96 100 Oximetry ED Medical Decision Making - Lab Data Result diagrams: 05/14/22 14:37 05/14/22 14:37 - Radiology Data Radiology results: report reviewed, image reviewed - Medical Decision Making 31-year-old black male with no past medical history presents to the emergency department for evaluation of nausea, vomiting, and abdominal pain. He states that for the past 3 days that he has been having sore throat and intermittent diaphoresis. He states that he ate some fish last night and earlier this a.m. he started to have persistent nausea and vomiting and abdominal cramping. He states that he has not been able to keep anything down. He denies fever, dysuria, penile discharge but states that he has had some intermittent diarrhea as well. Patient very tender to any palpation to abdomen on examination. Noted to have hypokalemia at 3.2 on labs that was treated with 40 mg equivalent of potassium chloride. Other labs unremarkable, urine unremarkable, and CT scan unremar kable. Symptoms resolved after several medications, and patient states that he feels much better. He was able to drink fluids and keep them down. Patient will be discharged home with Zofran and Bentyl to use as directed and advised to follow-up with his primary care provider if worsening symptoms. He is advised to return to the emergency department as needed. He verbalizes understanding of and agreement with plan of care. Critical care attestation.: If time is entered above; I have spent that time in minutes in the direct care of this critically ill patient, excluding procedure time. ED Disposition Clinical Impression: Gastroenteritis, Hypokalemia Disposition: 01 HOME / SELF CARE / HOMELESS Is pt being admited?: No Does the pt Need Aspirin: No Condition: Stable Instructions: Viral Gastroenteritis, Adult, [id number], Hypokalemia, Potassium Content of Foods Additional Instructions: Take medications as prescribed. Follow-up with your primary care provider if worsening symptoms. Return to the emergency department as needed. Prescriptions: Dicyclomine [Bentyl] 20 mg PO QID PRN #30 tablet PRN Reason: Pain, Moderate (4-6) Promethazine [Phenergan] 25 mg PO Q8HR PRN #30 tab PRN Reason: Nausea Referrals: LETITIA HARRISON MD [Staff Physician] - 3-5 Days CARLYLE RAMIREZ MD [Staff Physician] - 3-5 Days Forms: Work/School Release Form(ED) Time of Disposition: 19:21
[2022-05-14 20:11] VITALS: BP 116/57
== END 2022-05-14 20:11 | disposition home or self-care (01) ==
LOC: ED 13:11
DX: K52.9 Noninfective gastroenteritis and colitis, unspecified (principal); E87.6 Hypokalemia; F17.200 Nicotine dependence, unspecified, uncomplicated; Z79.899 Other long term (current) drug therapy
CPT/HCPCS: 36415; 71045; 74176; 80053; 81001; 83690; 85027; 96361; 96372; 96374; 96375; 99285; J0500; J0780; J1200; J1885; J2270; J2405; J2765; J7030